=== PATIENT | male | born 1990 | race Two or more races ===

== ENCOUNTER 2016-08-22 07:20 | Emergency (ER) | payer SELFPAY ==
[2016-08-22 07:25] VITALS: BMI 24.6
--- NOTE | 2016-08-22 07:46 | PDOC ---
History of Present Illness - General Chief Complaint: Nausea/Vomiting Stated Complaint: VOMITING Time Seen by Provider: 08/22/16 07:31 History Source: Patient Exam Limitations: No Limitations - History of Present Illness Initial Comments: 08/22/16 07:46 CHIEF COMPLAINT: Abdominal pain HISTORY OF PRESENT ILLNESS: This is an otherwise healthy 26 year old male who presents for evaluation of generalized abdominal cramping and multiple episodes of vomiting and diarrhea since last night. He reports that emesis became blood- streaked after many episodes of vomiting. He had subjective fever last night. Girlfriend was recently sick with similar symptoms. V/s on arrival are notable for P 92. REVIEW OF SYSTEMS: GENERAL/CONSTITUTIONAL: Subjective fever. No weakness. No weight change. HEAD, EYES, EARS, NOSE AND THROAT: No change in vision. No ear pain or discharge. No sore throat. CARDIOVASCULAR: No chest pain or palpitations. RESPIRATORY: No cough, wheezing, or shortness of breath. GASTROINTESTINAL: See HPI. GENITOURINARY: No dysuria, frequency, or change in urination. MUSCULOSKELETAL: No joint or muscle swelling or pain. No neck or back pain. SKIN: No rash or easy bruising. NEUROLOGIC: No headache, vertigo, loss of consciousness, or loss of sensation. PSYCHIATRIC: No depression or anxiety. ENDOCRINE: No increased thirst. No abnormal weight change. HEMATOLOGIC/LYMPHATIC: No anemia, easy bleeding, or history of blood clots. ALLERGIC/IMMUNOLOGIC: No hives or skin allergy. No latex allergy. PHYSICAL EXAM: GENERAL: The patient is awake, alert, and fully oriented, in no acute distress. ENT: Pupils equal, round and reactive to light, extraocular movements intact, sclera anicteric, conjunctiva clear. Neck supple. LUNGS: Clear to auscultation bilaterally. Normal excursion. No respiratory distress or use of accessory muscles. CV: RRR, S1/S2, no MRG. Cap refill < 2 sec. ABDOMEN: Soft, non-distended, diffusely tender but not peritoneal. EXTREMITIES: Normal range of motion, no edema. NEUROLOGICAL: Normal speech, normal gait. CN II-XII grossly intact. PSYCH: Normal mood, normal affect. SKIN: Warm, dry, normal turgor, no rashes or lesions noted. Past History - Past Medical History Allergies/Adverse Reactions: Allergies Allergy/AdvReac Type Severity Reaction Status Date / Time No Known Allergies Allergy Verified 08/22/16 07:21 Home Medications: Ambulatory Orders Famotidine [Pepcid -] 20 mg PO DAILY #30 tablet 08/22/16 Ondansetron [Zofran Odt -] 4 mg SL TID PRN #21 od.tablet 08/22/16 Other medical history: none - Psycho/Social/Smoking Cessation Hx Anxiety: No Suicidal Ideation: No Smoking History: Never smoked Have you smoked in the past 12 months: No Information on smoking cessation initiated: No Hx Alcohol Use: Yes Drug/Substance Use Hx: Yes Substance Use Type: None *Physical Exam - Vital Signs Last Vital Signs Temp Pulse Resp BP Pulse Ox 98.0 F 92 H 18 112/70 100 08/22/16 07:22 08/22/16 07:22 08/22/16 07:22 08/22/16 07:22 08/22/16 07:22 ED Treatment Course - LABORATORY CBC & Chemistry Diagram: 08/22/16 08:10 08/22/16 08:10 Medical Decision Making - Medical Decision Making 08/22/16 09:00 A/P: 26 year old male with abdominal pain, vomiting, diarrhea, and subjective fever. 1. Labs including CBC, comp, lipase, UA 2. Pepcid, Zofran, and IVF for symptomatic relief 3. Repeat abdominal exam, PO trial 08/22/16 09:11 WBC 13.6 08/22/16 10:00 Tolerating PO fluids. Repeat abdominal exam: soft and non-tender. Repeat HR is within normal limits. *DC/Admit/Observation/Transfer Diagnosis at time of Disposition: Vomiting and diarrhea - Discharge Dispostion Admit: No - Prescriptions Prescriptions: Famotidine [Pepcid -] 20 mg PO DAILY #30 tablet Ondansetron [Zofran Odt -] 4 mg SL TID PRN #21 od.tablet PRN Reason: zofran - Referrals Referrals: Odilia Dawkins MD [Staff Physician] - 1 week (Primary care) - Patient Instructions Printed Discharge Instructions: DI for Viral Gastroenteritis -- Adult, Gastroenteritis Diet Additional Instructions: -Rest and stay well-hydrated -Eat a bland diet (instructions enclosed) -Take Pepcid and Zofran as prescribed -Follow up with your primary care doctor (referral enclosed if you do not have one) -Return here if you are unable to keep down fluids, or for any other concerning symptoms - Post Discharge Activity Work/School Note: Back to Work
[2016-08-22] MEDS ORDERED: FAMOTIDINE 20 MG/50 ML IVPB 20 MG in PREMIX 50 IVPB ONE (07:54)
[2016-08-22] MEDS ORDERED: ONDANSETRON 4 MG/2 ML VIAL IVPUSH ONE (07:54)
[2016-08-22] MEDS ORDERED: ONDANSETRON 4 MG/2 ML VIAL ONE (07:58)
[2016-08-22] MEDS ORDERED: FAMOTIDINE 20 MG/50 ML IVPB 50 ML IVPB ONE (07:59)
[2016-08-22] MEDS ORDERED: SODIUM CHLORIDE 1,000 ML IV SCH (08:00)
[2016-08-22 08:20] LABS: BASOPHIL 0.4 % (0-2.0); EOSINOPHIL 0.3 % (0-4.5); MCH 28.2 pg (25.7-33.7); MCHC 33.8 g/dl (32.0-35.9); MEAN CELL VOLUME 83.5 fl (80-96); MEAN PLT VOLUME 8.8 fl (7.5-11.1); NEUTROPHILS 84.8 % (42.8-82.8); PLATELET COUNT 248 K/MM3 (134-434); RDW 14.1 % (11.9-15.9); WHITE BLOOD COUNT 13.6 K/mm3 (4.0-10.0)
[2016-08-22 08:23] LABS: URINE APPEARANCE CLEAR; URINE BILIRUBIN NEGATIVE (NEGATIVE); URINE BLOOD NEGATIVE (NEGATIVE); URINE COLOR YELLOW; URINE GLUCOSE (UA) NEGATIVE (NEGATIVE); URINE KETONE 2+ (NEGATIVE); URINE LEUK ESTERASE NEGATIVE (NEGATIVE); URINE NITRITE NEGATIVE (NEGATIVE); URINE PROTEIN NEGATIVE (NEGATIVE); URINE UROBILINOGEN 2.0 E.U/dl E.U./dl (0.2-1.0)
[2016-08-22 09:09] LABS: ALBUMIN 4.4 g/dl (3.4-5.0); ANION GAP 10 (8-16); BILIRUBIN,TOTAL 0.9 mg/dL (0.2-1.0); CALCIUM 9.5 mg/dL (8.5-10.1); CO2 26 mmol/L (21-32); COCKROFT - GAULT 117.8; GLUCOSE,RANDOM 89 mg/dL (74-106); MAGNESIUM 2.1 mg/dL (1.8-2.4); SGOT/AST 17 U/L (15-37); SGPT/ALT 35 U/L (12-78)
[2016-08-22 09:10] LABS: ALK PHOS 83 U/L (45-117)
[2016-08-22 10:17] VITALS: BP 127/78; PULSE 72; TEMP 98.1
== END 2016-08-22 10:15 | disposition home or self-care (01) ==
LOC: JER 07:20
PROC: 3E033GC Introduction of Other Therapeutic Substance into Peripheral Vein, Percutaneous Approach (ICD-10-PCS; principal; 2016-08-22)
DX: K52.9 Noninfective gastroenteritis and colitis, unspecified (principal)
CPT/HCPCS: 36415; 80053; 81003; 83690; 83735; 85025; 99283-25

== ENCOUNTER 2017-12-11 09:19 | Emergency (ER) | payer SELFPAY ==
[2017-12-11 09:32] VITALS: BP 131/87; PULSE 83; TEMP 97.9; BMI 25.8
[2017-12-11] MEDS ORDERED: KETOROLAC TROMETHAMINE 60 MG/2 ML VIAL IM ONE (10:17)
[2017-12-11] MEDS ORDERED: KETOROLAC TROMETHAMINE 60 MG/2 ML VIAL ONE (10:19)
--- NOTE | 2017-12-11 10:46 | PDOC ---
History of Present Illness - General Chief Complaint: Toothache Stated Complaint: TOOTHACHE Time Seen by Provider: 12/11/17 10:06 History Source: Patient Exam Limitations: No Limitations - History of Present Illness Initial Comments: 12/11/17 16:01 27 yr male no PMHX with c/o pain to the right lower gum line for 2-3 days has apt with dental monday. Pt denies fever denies chills. no recent dental surgery 12/11/17 16:02 Timing/Duration: 24 hours Severity: mild Past History - Past Medical History Allergies/Adverse Reactions: Allergies Allergy/AdvReac Type Severity Reaction Status Date / Time No Known Allergies Allergy Verified 12/11/17 10:03 Home Medications: Ambulatory Orders Chlorhexidine Gluconate [Peridex -] 15 ml MM BID #1 bottle 12/11/17 Naproxen [Naprosyn -] 500 mg PO BID PRN #30 tablet 12/11/17 COPD: No - Immunization History Immunization Up to Date: Yes - Suicide/Smoking/Psychosocial Hx Smoking History: Never smoked Have you smoked in the past 12 months: No Hx Alcohol Use: No Drug/Sub[facility] Substance Use Type: Marijuana Review of Systems - Review of Systems Able to Perform ROS?: Yes Is the patient limited Divehi proficient: No Constitutional: No: Symptoms Reported HEENTM: Yes: Symptoms Reported *Physical Exam - Vital Signs Last Vital Signs Temp Pulse Resp BP Pulse Ox 97.9 F 83 16 131/87 98 12/11/17 09:29 12/11/17 09:29 12/11/17 09:29 12/11/17 09:29 12/11/17 09:29 - Physical Exam General Appearance: Yes: Nourished, Appropriately Dressed HEENT: positive: EOMI, SHAWN, Other (right lower gum with mild redness surrounding tooth #32 no abscess, TTP ) Respiratory/Chest: positive: Lungs Clear, Normal Breath Sounds ED Treatment Course - Medications Given in the ED: ED Medications Discontinued Medications Generic Name Dose Route Start Last Admin Trade Name Freq PRN Reason Stop Dose Admin Ketorolac Tromethamine 60 mg 12/11/17 10:17 12/11/17 10:22 Toradol Injection - IM 12/11/17 10:18 60 mg ONCE ONE Administration Medical Decision Making - Medical Decision Making 12/11/17 16:06 cc: toothache without infection follow with dental [facility] use the mouthwash as directed peridex rinse return if any worsening symptoms *DC/Admit/Observation/Transfer Diagnosis at time of Disposition: Toothache - Discharge Dispostion Disposition: HOME Condition at time of disposition: Good - Prescriptions Prescriptions: Chlorhexidine Gluconate [Peridex -] 15 ml MM BID #1 bottle Naproxen [Naprosyn -] 500 mg PO BID PRN #30 tablet PRN Reason: Pain - Referrals Referrals: Christal Castrejon [Primary Care Provider] - - Patient Instructions Printed Discharge Instructions: DI for Dental Pain Additional Instructions: use the mouthwash as prescribed take naprosyn for pain follow with your dentist as planned Return if any worsening symptoms, fever increased pain or any other concerns - Post Discharge Activity Forms/Work/School Notes: Back to Work
== END 2017-12-11 10:50 | disposition home or self-care (01) ==
LOC: JERFT 09:19
PROC: 3E0233Z Introduction of Anti-inflammatory into Muscle, Percutaneous Approach (ICD-10-PCS; principal; 2017-12-11)
DX: K08.89 Other specified disorders of teeth and supporting structures (principal)
CPT/HCPCS: 99281-25

== ENCOUNTER 2021-08-08 22:32 | Emergency (ER) | payer BC, OTHER ==
[2021-08-08 22:57] VITALS: BP 136/88; PULSE 79; TEMP 99.2; BMI 28.8
[2021-08-08] MEDS ORDERED: ONDANSETRON 4 MG/2 ML VIAL IVPUSH ONE (23:09)
[2021-08-08] MEDS ORDERED: SODIUM CHLORIDE 0.9% 500 ML INFUS.BAG IV ONE (23:09)
[2021-08-08] MEDS ORDERED: ACETAMINOPHEN 1000 MG/100 ML BAG IVPB ONE (23:09)
[2021-08-08] MEDS ORDERED: morphine CARPU-JECT 4 MG/1 ML DISP.SYRIN IVPUSH ONE (23:10)
[2021-08-08] MEDS ORDERED: ACETAMINOPHEN INJECTION 100 ML IVPB ONE (23:18)
[2021-08-08] MEDS ORDERED: morphine SULFATE 4 MG/ML VIAL ONE (23:18)
[2021-08-08] MEDS ORDERED: ONDANSETRON 4 MG/2 ML VIAL ONE (23:18)
[2021-08-08 23:46] LABS: BASO % 1.1 % (0-2.0); EOS % 1.6 % (0-4.5); HEMATOCRIT 41.7 % (35.4-49); HEMOGLOBIN 14.2 GM/dL (11.7-16.9); LYMPH % 26.2 % (8-40); MCH 28.1 pg (25.7-33.7); MCHC 34.2 g/dl (32.0-35.9); MEAN CELL VOLUME 82.3 fl (80-96); MEAN PLT VOLUME 8.5 fl (7.5-11.1); MONO % 14.8 % (3.8-10.2); NEUT % 56.3 % (42.8-82.8); PLATELET COUNT 314 10^3/uL (134-434); RBC 5.06 M/mm3 (4.00-5.60); RDW 13.6 % (11.9-15.9); WHITE BLOOD COUNT 9.1 K/mm3 (4.0-10.0)
[2021-08-08 23:57] LABS: CALCIUM 9.4 mg/dL (8.5-10.1); INR 1.05 (0.83-1.09); PROTHROMBIN TIME (PATIENT) 12.1 SEC (9.7-13.0)
[2021-08-08 23:58] LABS: ALBUMIN 4.1 g/dl (3.4-5.0); BLOOD UREA NITROGEN 13.9 mg/dL (7-18); MAGNESIUM 2.2 mg/dL (1.8-2.4)
[2021-08-08 23:59] LABS: ACTIVATED PTT 30.7 SECONDS (25.2-36.5)
[2021-08-09 00:01] LABS: CREATININE 1.3 mg/dL (0.55-1.3)
[2021-08-09 00:02] LABS: TOT PROT 7.7 g/dl (6.4-8.2)
[2021-08-09 00:03] LABS: BILIRUBIN,TOTAL 0.2 mg/dL (0.2-1)
[2021-08-09] MEDS ORDERED: KETOROLAC TROMETHAMINE 15 MG/ML VIAL IVPUSH ONE (01:27)
[2021-08-09] MEDS ORDERED: KETOROLAC TROMETHAMINE 15 MG/ML VIAL ONE (01:47)
[2021-08-09 02:46] LABS: EPI CELLS 6 /uL (0-25.1); HYALINE CASTS 4 /uL (0-3.1); PH,URINE 6.5 (5.0-8.0); URINE APPEARANCE CLEAR; URINE BACTERIA 23 /uL (0-1359); URINE BILIRUBIN NEGATIVE (NEGATIVE); URINE COLOR YELLOW; URINE GLUCOSE (UA) NEGATIVE (NEGATIVE); URINE KETONE 1+ (NEGATIVE); URINE LEUK ESTERASE NEGATIVE (NEGATIVE); URINE NITRITE NEGATIVE (NEGATIVE); URINE PROTEIN 1+ (NEGATIVE); URINE RBC 655 /uL (0-23.9); URINE WBC 24 /uL (0-25.8)
[2021-08-09] MEDS ORDERED: TAMSULOSIN HCL 0.4 MG CAP PO ONE ×2 (03:02→03:05)
[2021-08-09] MEDS ORDERED: CEPHALEXIN MONOHYDRATE 500 MG CAPSULE (UD) PO ONE (03:05)
[2021-08-09] MEDS ORDERED: CEPHALEXIN MONOHYDRATE 500 MG CAPSULE (UD) ONE (03:37)
[2021-08-09] MEDS ORDERED: TAMSULOSIN HCL 0.4 MG CAP ONE (03:37)
== END 2021-08-09 03:44 | disposition home or self-care (01) ==
LOC: JER 22:32
PROC: 3E033GC Introduction of Other Therapeutic Substance into Peripheral Vein, Percutaneous Approach (ICD-10-PCS; principal; 2021-08-08)
DX: N20.1 Calculus of ureter (principal)
CPT/HCPCS: 36415; 74176-TC; 80053; 81003; 83735; 85025; 85610; 85730; 86850; 86900; 86901; 87086; 99285-25

== ENCOUNTER 2022-06-15 04:45 | Emergency (ER) | payer SELFPAY ==
[2022-06-15 04:53] VITALS: BP 116/79; PULSE 79; RESP 18; TEMP 97.5; BMI 28.0
[2022-06-15] MEDS ORDERED: KETOROLAC TROMETHAMINE 30 MG/1 ML VIAL IM ONE (05:05)
[2022-06-15] MEDS ORDERED: DEXAMETHASONE 4 MG TABLET (FP) PO ONE (05:05)
[2022-06-15] MEDS ORDERED: LIDOCAINE 5% TOPICAL PATCH TP ONE (05:09)
[2022-06-15] MEDS ORDERED: DEXAMETHASONE SOD PHOSPHATE 10 MG/1 ML VIAL ONE (05:14)
[2022-06-15] MEDS ORDERED: LIDOCAINE 5% TOPICAL PATCH ONE (05:14)
[2022-06-15] MEDS ORDERED: KETOROLAC TROMETHAMINE 30 MG/1 ML VIAL ONE (05:14)
[2022-06-15] MEDS ORDERED: LIDOCAINE PATCH REMOVAL MC SCH (22:00)
== END 2022-06-15 05:45 | disposition home or self-care (01) ==
LOC: JER 04:45
PROC: 3E0233Z Introduction of Anti-inflammatory into Muscle, Percutaneous Approach (ICD-10-PCS; principal; 2022-06-15)
DX: S29.012A Strain of muscle and tendon of back wall of thorax, initial encounter (principal); M54.6 Pain in thoracic spine; X50.9XXA Other and unspecified overexertion or strenuous movements or postures, initial encounter
CPT/HCPCS: 99284-25

== ENCOUNTER 2022-08-05 01:51 | Emergency (ER) | payer SELFPAY ==
[2022-08-05 02:02] VITALS: BP 117/81; PULSE 89; RESP 18; TEMP 98.4; BMI 29.7
[2022-08-05] MEDS ORDERED: AMOX TR/POT CLAV 875MG/125MG TABLETS (FP) PO ONE (03:56)
[2022-08-05] MEDS ORDERED: AMOX TR/POT CLAV 875MG/125MG TABLETS (FP) ONE (04:02)
== END 2022-08-05 04:14 | disposition home or self-care (01) ==
LOC: JER 01:51
DX: K08.89 Other specified disorders of teeth and supporting structures (principal); K04.7 Periapical abscess without sinus
CPT/HCPCS: 99283-25

== ENCOUNTER 2023-05-29 13:01 | Emergency (ER) | payer OTHER ==
[2023-05-29 13:13] VITALS: BP 115/80; PULSE 92; RESP 18; TEMP 98.1; BMI 28.8
== END 2023-05-29 14:31 | disposition home or self-care (01) ==
LOC: JER 13:01
DX: M79.602 Pain in left arm (principal)
CPT/HCPCS: 71045-TC-FY; 93005; 93010; 99284-25

== ENCOUNTER 2024-03-24 13:02 | Emergency (ER) | payer OTHER ==
[2024-03-24 13:28] VITALS: BP 135/92; PULSE 67; RESP 18; TEMP 97; BMI 28.0
[2024-03-24] MEDS ORDERED: KETOROLAC TROMETHAMINE 30 MG/1 ML VIAL ONE (14:25)
[2024-03-24] MEDS ORDERED: LIDOCAINE 4% PATCH TP ONE (14:25)
[2024-03-24] MEDS ORDERED: METHOCARBAMOL 500 MG TABLET ONE (14:25)
[2024-03-24] MEDS: LIDOCAINE 4% PATCH TP ONE (14:32)
[2024-03-24] MEDS: KETOROLAC TROMETHAMINE 30 MG/1 ML VIAL IM ONE (14:32)
[2024-03-24] MEDS: METHOCARBAMOL 500 MG TABLET PO ONE (14:33)
== END 2024-03-24 14:50 | disposition home or self-care (01) ==
LOC: JERFT 13:02 → JER 13:02 → JERFT 14:50
PROC: 3E0133Z Introduction of Anti-inflammatory into Subcutaneous Tissue, Percutaneous Approach (ICD-10-PCS; principal; 2024-03-24)
DX: M54.50 Low back pain, unspecified (principal); X50.0XXA Overexertion from strenuous movement or load, initial encounter; Y99.0 Civilian activity done for income or pay
CPT/HCPCS: 99284-25